=== PATIENT | female | born 1995 | race Caucasian/White ===

== ENCOUNTER 2018-07-30 21:42 | Emergency (ER) | payer BC ==
[2018-07-30] MEDS ORDERED: ONDANSETRON 4 MG/2 ML VIAL IVP STA (22:50)
[2018-07-30] MEDS ORDERED: SODIUM CHLORIDE 0.9% 1,000 ML IV STA (22:50)
[2018-07-30] MEDS ORDERED: KETOROLAC 30 MG/ML 1 ML VIAL IVP STA (22:50)
[2018-07-30 23:49] LABS: Basophils # (A) 0.1 k/uL (0-0.2); Basophils % (A) 0 %; Eosinophils % (A) 0 %; HCT 39.4 % (34.0-46.0); HGB 13.1 gm/dL (11.4-16.0); Lymphocytes # (A) 2.4 k/uL (1.0-4.8); Lymphocytes % (A) 18 %; MCH 29.9 pg (25.0-35.0); MCHC 33.2 g/dL (31.0-37.0); Mean Platelet Volume 6.6; Monocytes # (A) 0.6 k/uL (0-1.0); Monocytes % (A) 4 %; Neutrophils # (A) 9.8 k/uL (1.3-7.7); Neutrophils % (A) 75 %; Platelet Count 335 k/uL (150-450); RBC 4.37 m/uL (3.80-5.40); RDW 12.8 % (11.5-15.5)
[2018-07-30 23:56] LABS: Appearance,Urine Clear (Clear); Bacteria,Urine Rare /hpf; Bilirubin,Urine Negative (Negative); Blood,Urine Moderate (Negative); Color,Urine Light Yellow; Glucose,Urine (UA) Negative (Negative); Ketones,Urine Negative (Negative); Leukocyte Esterase,Urine Negative (Negative); Mucus,Urine Rare /hpf; Nitrite,Urine Negative (Negative); PH, Urine 6.5 (5.0-8.0); Protein,Urine Negative (Negative); RBC,Urine 7 /hpf (0-5); Specific Gravity,Urine 1.006 (1.001-1.035); Squamous Epithelial Cell,Urine 2 /hpf (0-4); Urobilinogen,Urine <2.0 mg/dL (<2.0); WBC,Urine 2 /hpf (0-5)
[2018-07-31 00:01] LABS: ALT 13 U/L (9-52); AST 23 U/L (14-36); Albumin 4.3 g/dL (3.5-5.0); Alkaline Phosphatase 72 U/L (38-126); Amylase 68 U/L (30-110); Anion Gap 10 mmol/L; Blood Urea Nitrogen 11 mg/dL (7-17); Calcium 9.9 mg/dL (8.4-10.2); Carbon Dioxide 27 mmol/L (22-30); Chloride 103 mmol/L (98-107); Glucose 109 mg/dL (74-99); Lipase 43 U/L (23-300); Potassium 3.7 mmol/L (3.5-5.1); Sodium 140 mmol/L (137-145); Total Bilirubin 0.4 mg/dL (0.2-1.3); Total Protein 7.4 g/dL (6.3-8.2)
--- NOTE | 2018-07-31 00:52 | CT ---
EXAM: CT Abdomen and Pelvis Without Intravenous Contrast CLINICAL HISTORY: Pain TECHNIQUE: Axial computed tomography images of the abdomen and pelvis without intravenous contrast. CTDI is 0.085, 0.085, 10.2 mGy and DLP is 536.4 mGy-cm. This CT exam was performed using one or more of the following dose reduction techniques: automated exposure control, adjustment of the mA and/or kV according to patient size, and/or use of iterative reconstruction technique. COMPARISON: No relevant prior studies available. FINDINGS: Lung bases: Dependent atelectasis. ABDOMEN: Liver: Unremarkable. Gallbladder and bile ducts: Unremarkable. Pancreas: Unremarkable. Spleen: Unremarkable. Adrenals: Unremarkable. Kidneys and ureters: 3 mm This the right UVJ which causes minimal hydroureteronephrosis. There are additional nonobstructing calculi within both kidneys. Stomach and bowel: Unremarkable. PELVIS: Appendix: No findings to suggest acute appendicitis. Bladder: Unremarkable. Reproductive: Unremarkable as visualized. ABDOMEN and PELVIS: Intraperitoneal space: Unremarkable. Bones/joints: No acute fracture. No dislocation. Soft tissues: Unremarkable. Vasculature: Unremarkable. No abdominal aortic aneurysm. Lymph nodes: Unremarkable. IMPRESSION: 1. 3 mm This the right UVJ which causes minimal hydroureteronephrosis. 2. There are additional nonobstructing calculi within both kidneys.
[2018-07-31] MEDS ORDERED: ONDANSETRON 4 MG ODT STARTER PACK 2 TAB BTL PO STA (01:03)
[2018-07-31] MEDS ORDERED: ACET/COD 300 MG/30 MG STARTER PACK 6 TAB BTL PO STA (01:03)
--- NOTE | 2018-07-31 01:03 | ED ---
Abdominal Pain HPI - General Source: patient Mode of arrival: ambulatory Limitations: no limitations <Idalmis Arzola - Last Filed: 07/31/18 02:47> <Hansa Antonio - Last Filed: 07/31/18 22:22> - General Chief Complaint: Abdominal Pain Stated Complaint: Side Abd Pain Time Seen by Provider: 07/30/18 22:16 - History of Present Illness Initial Comments: 23-year-old female patient presents to the emergency department today for evaluation of right flank pain and right lower quadrant abdominal pain. Patient states this started yesterday and has been worsening throat the day today. Patient states she has been taking naproxen for the pain and it does seem to help all when it wears off the pain comes back and is quite intense. Patient states it is a general burning aching type pain and that at times becomes stabbing. Patient states that she has been having difficulty with urination today. Denies any dysuria to states it is hard to urinate. She denies any fever or chills with this. Denies any nausea or vomiting. States she has had no appetite. States she was able to keep down food and fluid however. She states there is a possibility she is . She denies any constipation or diarrhea. Patient did have in the past but no other abdominal surgeries. Patient denies any recent rash, shortness breath, chest pain, numbness, tingling, dizziness, weakness, headache, visual changes, or any other complaints. (Idalmis Arzola) - Related Data Home Medications Medication Instructions Recorded Confirmed Naproxen 500 mg PO BID 07/30/18 07/30/18 Norethindrone-E.estradiol-Iron 1 tab PO DAILY 07/30/18 07/30/18 [Junel Fe 1.5 mg-30 Mcg Tablet] Previous Rx's Medication Instructions Recorded Naproxen [Naprosyn] 500 mg PO BID #30 tablet 07/31/18 Ondansetron [Zofran ODT] 4 mg PO Q8HR PRN #10 tab 07/31/18 Tamsulosin HCl [Flomax] 0.4 mg PO DAILY #7 cap 07/31/18 Allergies Allergy/AdvReac Type Severity Reaction Status Date / Time Penicillins Allergy Unknown Verified 07/30/18 21:48 Review of Systems ROS Other: All systems not noted in ROS Statement are negative. <Idalmis Arzola M - Last Filed: 07/31/18 02:47> ROS Other: All systems not noted in ROS Statement are negative. <Marguerite Antonioica P - Last Filed: 07/31/18 22:22> ROS Statement: Those systems with pertinent positive or pertinent negative responses have been documented in the HPI. Past Medical History Additional Past Medical History / Comment(s): villafuerte parkinson white History of Any Multi-Drug Resistant Organisms: None Reported Past Surgical History: Section Past Psychological History: No Psychological Hx Reported Smoking Status: Never smoker Past Alcohol Use History: None Reported Past Drug Use History: None Reported <Idalmis Arzola M - Last Filed: 07/31/18 02:47> General Exam Limitations: no limitations General appearance: alert, in no apparent distress, other (Physical well- developed, well-nourished adult female patient in no acute distress. Vital s igns upon presentation are temperature 97.8F, pulse 116, respirations 18, blood pressure 149/96, pulse ox 100% on room air.) Eye exam: Present: normal appearance, PERRL, EOMI. Absent: scleral icterus, conjunctival injection, periorbital swelling ENT exam: Present: normal exam, normal oropharynx, mucous membranes moist Respiratory exam: Present: normal lung sounds bilaterally. Absent: respiratory distress, wheezes, rales, rhonchi, stridor Cardiovascular Exam: Present: regular rate, normal rhythm, normal heart sounds. Absent: systolic murmur, diastolic murmur, rubs, gallop, clicks GI/Abdominal exam: Present: soft, tenderness (Mild right-sided abdominal tenderness), normal bowel sounds. Absent: distended, guarding, rebound, rigid Back exam: Present: normal inspection, CVA tenderness (R). Absent: CVA tenderness (L) Neurological exam: Present: alert, oriented X3, CN II-XII intact Psychiatric exam: Present: normal affect, normal mood Skin exam: Present: warm, dry, intact, normal color. Absent: rash <Idalmis Arzola M - Last Filed: 07/31/18 02:47> Course Vital Signs 07/30/18 07/30/18 07/31/18 21:46 23:00 00:05 Temperature 97.8 F 97.8 F 98.2 F Pulse Rate 116 H 70 87 Respiratory 18 16 15 Rate Blood Pressure 149/96 132/92 139/87 O2 Sat by Pulse 100 99 98 Oximetry 07/31/18 01:20 Temperature 98.5 F Pulse Rate 98 Respiratory 18 Rate Blood Pressure 149/98 O2 Sat by Pulse 99 Oximetry Medical Decision Making - Lab Data Result diagrams: 07/30/18 23:40 07/30/18 23:40 - Radiology Data Radiology results: report reviewed, image reviewed <Idalmis Arzola - Last Filed: 07/31/18 02:47> - Lab Data Result diagrams: 07/30/18 23:40 07/30/18 23:40 <Hansa Antonio - Last Filed: 07/31/18 22:22> - Medical Decision Making 23-year-old female patient presents to the emergency department today for evalua tion of right-sided flank and abdominal pain. Physical examination did reveal right CVA tenderness. Labs reviewed and showed evidence for blood in the urine but no evidence for infection. Patient is not . Given symptoms and findings of red blood cells in the urine is concerned for kidney stones we did perform CT of the abdomen and pelvis without contrast. This did show a 3 mm stone to the right UVJ. She'll be treated with Flomax, anti-inflammatories, nausea medication. She is instructed to follow-up with urologist for recheck as soon as possible. Return parameters discussed in detail. She verbalizes understanding and agrees with this plan. (Idalmis Arzola) I was available for consultation in the emergency department. The history and physical exam were done by the Midlevel Provider. Medical decision making was done by the Midlevel Provider. I have reviewed the chart, however was not consulted specifically or made aware of this patient by the above midlevel provider and did not personally evaluate, interact with, or disposition this patient on the day of their visit Chart was dictated using [employer] dictation software. Attempts were made to correct any dictation errors however some typographical errors may persist. (Hansa Antonio) - Lab Data Lab Results 07/30/18 07/30/18 07/30/18 Range/Units 23:40 23:40 23:40 WBC 13.0 H (3.8-10.6) k/uL RBC 4.37 (3.80-5.40) m/uL Hgb 13.1 (11.4-16.0) gm/dL Hct 39.4 (34.0-46.0) % MCV 90.0 (80.0-100.0) fL MCH 29.9 (25.0-35.0) pg MCHC 33.2 (31.0-37.0) g/dL RDW 12.8 (11.5-15.5) % Plt Count 335 (150-450) k/uL Neutrophils % 75 % Lymphocytes % 18 % Monocytes % 4 % Eosinophils % 0 % Basophils % 0 % Neutrophils # 9.8 H (1.3-7.7) k/uL Lymphocytes # 2.4 (1.0-4.8) k/uL Monocytes # 0.6 (0-1.0) k/uL Eosinophils # 0.0 (0-0.7) k/uL Basophils # 0.1 (0-0.2) k/uL Sodium 140 (137-145) mmol/L Potassium 3.7 (3.5-5.1) mmol/L Chloride 103 (98-107) mmol/L Carbon Dioxide 27 (22-30) mmol/L Anion Gap 10 mmol/L BUN 11 (7-17) mg/dL Creatinine 0.55 (0.52-1.04) mg/dL Est GFR (CKD-EPI)AfAm >90 (>60 ml/min/1.73 sqM) Est GFR (CKD-EPI)NonAf >90 (>60 ml/min/1.73 sqM) Glucose 109 H (74-99) mg/dL Calcium 9.9 (8.4-10.2) mg/dL Total Bilirubin 0.4 (0.2-1.3) mg/dL AST 23 (14-36) U/L ALT 13 (9-52) U/L Alkaline Phosphatase 72 (38-126) U/L Total Protein 7.4 (6.3-8.2) g/dL Albumin 4.3 (3.5-5.0) g/dL Amylase 68 (30-110) U/L Lipase 43 (23-300) U/L Urine Color Urine Appearance (Clear) Urine pH (5.0-8.0) Ur Specific [place] (1.001-1.035) Urine Protein (Negative) Urine Glucose (UA) (Negative) Urine Ketones (Negative) Urine Blood (Negative) Urine Nitrite (Negative) Urine Bilirubin (Negative) Urine Urobilinogen (<2.0) mg/dL Ur Leukocyte Esterase (Negative) Urine RBC (0-5) /hpf Urine WBC (0-5) /hpf Ur Squamous Epith Cells (0-4) /hpf Urine Bacteria (None) /hpf Urine Mucus (None) /hpf Urine HCG, Qual Not Detected (Not Detectd) 07/30/18 Range/Units 23:40 WBC (3.8-10.6) k/uL RBC (3.80-5.40) m/uL Hgb (11.4-16.0) gm/dL Hct (34.0-46.0) % MCV (80.0-100.0) fL MCH (25.0-35.0) pg MCHC (31.0-37.0) g/dL RDW (11.5-15.5) % Plt Count (150-450) k/uL Neutrophils % % Lymphocytes % % Monocytes % % Eosinophils % % Basophils % % Neutrophils # (1.3-7.7) k/uL Lymphocytes # (1.0-4.8) k/uL Monocytes # (0-1.0) k/uL Eosinophils # (0-0.7) k/uL Basophils # (0-0.2) k/uL Sodium (137-145) mmol/L Potassium (3.5-5.1) mmol/L Chloride (98-107) mmol/L Carbon Dioxide (22-30) mmol/L Anion Gap mmol/L BUN (7-17) mg/dL Creatinine (0.52-1.04) mg/dL Est GFR (CKD-EPI)AfAm (>60 ml/min/1.73 sqM) Est GFR (CKD-EPI)NonAf (>60 ml/min/1.73 sqM) Glucose (74-99) mg/dL Calcium (8.4-10.2) mg/dL Total Bilirubin (0.2-1.3) mg/dL AST (14-36) U/L ALT (9-52) U/L Alkaline Phosphatase (38-126) U/L Total Protein (6.3-8.2) g/dL Albumin (3.5-5.0) g/dL Amylase (30-110) U/L Lipase (23-300) U/L Urine Color Light Yellow Urine Appearance Clear (Clear) Urine pH 6.5 (5.0-8.0) Ur Specific [place] 1.006 (1.001-1.035) Urine Protein Negative (Negative) Urine Glucose (UA) Negative (Negative) Urine Ketones Negative (Negative) Urine Blood Moderate H (Negative) Urine Nitrite Negative (Negative) Urine Bilirubin Negative (Negative) Urine Urobilinogen <2.0 (<2.0) mg/dL Ur Leukocyte Esterase Negative (Negative) Urine RBC 7 H (0-5) /hpf Urine WBC 2 (0-5) /hpf Ur Squamous Epith Cells 2 (0-4) /hpf Urine Bacteria Rare H (None) /hpf Urine Mucus Rare H (None) /hpf Urine HCG, Qual (Not Detectd) - Radiology Data CT abdomen and pelvis without contrast was obtained. Report was reviewed in its entirety. Impression by Dr. Bonilla shows 3 mm stone to the right UVJ which causes minimal hydroureteronephrosis. There is additional nonobstructing cocci within both kidneys. (Idalmis Arzola) Disposition Is patient prescribed a controlled substance at d/c from ED?: No Time of Disposition: 01:03 <Idalmis Arzola - Last Filed: 07/31/18 02:47> <Hansa Antonio - Last Filed: 07/31/18 22:22> Clinical Impression: Kidney stone on right side Disposition: HOME SELF-CARE Condition: Good Instructions (If sedation given, give patient instructions): Kidney Stones (ED), How to Strain Your Urine (ED) Additional Instructions: Increase fluids. Take medications as directed. Follow-up with your primary care physician for recheck in 1-2 days. Follow-up with urologist for recheck as soon as possible. Return to the emergency department immediately for any new, worsening, or concerning symptoms. Prescriptions: Tamsulosin HCl [Flomax] 0.4 mg PO DAILY #7 cap Naproxen [Naprosyn] 500 mg PO BID #30 tablet Ondansetron [Zofran ODT] 4 mg PO Q8HR PRN #10 tab PRN Reason: Nausea Referrals: Yovanny Oswald MD [STAFF PHYSICIAN] - 1-2 days
[2018-07-31] MEDS ORDERED: TAMSULOSIN 0.4 MG CAP.ER.24H PO STA (01:07)
[2018-07-31 01:24] VITALS: BP 149/98; PULSE 98; RESP 18; TEMP 98.5
== END 2018-07-31 01:20 | disposition home or self-care (01) ==
LOC: EC 21:42
DX: N13.2 Hydronephrosis with renal and ureteral calculous obstruction (principal); Z79.1 Long term (current) use of non-steroidal anti-inflammatories (NSAID); Z79.3 Long term (current) use of hormonal contraceptives; Z88.0 Allergy status to penicillin
CPT/HCPCS: 36415; 80053; 82150; 83690; 85025; 81001; 81025; 99284; 96374; 96375; 96361 ×2; J2405; J1885; 74176

== ENCOUNTER 2022-11-08 19:01 | Emergency (ER) | payer BC ==
[2022-11-08 19:05] VITALS: BP 132/83; PULSE 90; RESP 18; TEMP 98.6
--- NOTE | 2022-11-08 19:52 | XR ---
EXAMINATION TYPE: XR soft tissue neck DATE OF EXAM: 11/08/2022 COMPARISON: NONE HISTORY: PATIENT FEELS FOOD WAS LODGED IN AIRWAY. TECHNIQUE: 2 views of the soft tissues of the neck are submitted. FINDINGS: The airway is patent. Normal appearing epiglottis. Retropharyngeal soft tissues are withi n normal limits. No evidence for radiopaque foreign body. IMPRESSION: Negative study
--- NOTE | 2022-11-08 21:16 | ED ---
ENT HPI - General Chief complaint: ENT Stated complaint: Swallowed foreign body; 9 weeks preg Source: patient Mode of arrival: ambulatory - History of Present Illness Initial comments: A 27-year-old female presenting to the ED with a chief complaint of foreign body sensation. Patient states she was eating dinner and a grill [place] was in her food. States that she feels it hit the back of her throat. Is unsure if she swallowed it however feels like it is still in the back of her throat as every time she swallows she feels pain. No dyspnea. No difficulty swallowing. No other complaints. - Related Data Home Medications Medication Instructions Recorded Confirmed Naproxen 500 mg PO BID 07/30/18 07/30/18 norethindrone-e.estradioL-iron 1 tab PO DAILY 07/30/18 07/30/18 [Junel Fe 1.5 mg-30 Mcg Tablet] Previous Rx's Medication Instructions Recorded Naproxen [Naprosyn] 500 mg PO BID #30 tablet 07/31/18 Ondansetron [Zofran ODT] 4 mg PO Q8HR PRN #10 tab 07/31/18 Tamsulosin HCl [Flomax] 0.4 mg PO DAILY #7 cap 07/31/18 Allergies Allergy/AdvReac Type Severity Reaction Status Date / Time Penicillins Allergy Unknown Verified 11/08/22 19:05 Review of Systems ROS Statement: Those systems with pertinent positive or pertinent negative responses have been documented in the HPI. ROS Other: All systems not noted in ROS Statement are negative. Past Medical History Additional Past Medical History / Comment(s): christo koehler History of Any Multi-Drug Resistant Organisms: None Reported Past Surgical History: Section Past Psychological History: No Psychological Hx Reported Past Alcohol Use History: None Reported Past Drug Use History: None Reported General Exam Limitations: no limitations General appearance: alert, in no apparent distress Head exam: Present: atraumatic ENT exam: Present: other (Punctate lesion on the patient's right tonsil) Neck exam: Present: normal inspection Respiratory exam: Present: normal lung sounds bilaterally Cardiovascular Exam: Present: regular rate, normal rhythm GI/Abdominal exam: Present: soft Extremities exam: Present: normal inspection Back exam: Present: normal inspection Neurological exam: Present: alert, oriented X3 Skin exam: Present: warm, dry Course Vital Signs 11/08/22 19:02 Temperature 98.6 F Pulse Rate 90 Respiratory 18 Rate Blood Pressure 132/83 O2 Sat by Pulse 100 Oximetry Medical Decision Making - Medical Decision Making Was pt. sent in by a medical professional or institution (VAISHNAVI Lozano, ERECTING ENGINEER, urgent care, hospital, or [place] health care facility...) When possible be specific @ -No Did you speak to anyone other than the patient for history (EMS, parent, family, police, friend...)? What history was obtained from this source @ -No Did you review nursing and triage notes (agree or disagree)? Why? @ -I reviewed and agree with nursing and triage notes Were old charts reviewed (outside hosp., previous admission, EMS record, old EK G, old radiological studies, urgent care reports/EKG's, [place] health [facility] facility records)? Report findings @ -No old charts were reviewed Differential Diagnosis (chest pain, altered mental status, abdominal pain women, abdominal pain men, vaginal bleeding, weakness, fever, dyspnea, syncope, headache, dizziness, GI bleed, back pain, seizure, CVA, palpatations, mental health, musculoskeletal)? @ -not applicable EKG interpreted by me (3pts min.). @ -None X-rays interpreted by me (1pt min.). @ -X-ray soft tissue shows no evidence of foreign object. CT interpreted by me (1pt min.). @ -None done U/S interpreted by me (1pt. min.). @ -None done What testing was considered but not performed or refused? (CT, X-rays, U/S, labs)? Why? @ -None What meds were considered but not given or refused? Why? @ -None Did you discuss the management of the patient with other professionals (professionals i.e. VAISHNAVI Lozano, ERECTING ENGINEER, lab, RT, psych nurse, social work instructor, urban designer, teacher, landcare officer, case repairer)? Give summary @ -No Was smoking cessation discussed for >3mins.? @ -No Was critical care preformed (if so, how long)? @ -No Were there social determinants of health that impacted care today? How? (H omelessness, low income, unemployed, alcoholism, drug addiction, transportation, low edu. Level, literacy, decrease access to med. care, fdc, rehab)? @ -No Was there de-escalation of care discussed even if they declined (Discuss DNR or withdrawal of care, Hospice)? DNR status @ -No What co-morbidities impacted this encounter? (DM, HTN, Smoking, COPD, CAD, Cancer, CVA, ARF, Chemo, Hep., AIDS, mental health diagnosis, sleep apnea, morbid obesity)? @ -None Was patient admitted / discharged? Hospital course, mention meds given and route, prescriptions, significant lab abnormalities, going to OR and other pertinent info. @ -Discharge. Exam shows no foreign body in throat however did show a punctate lesion consistent with swallowing a foreign object/trauma caused by the foreign object. At this time, patient is not having any dyspnea or difficulty swallowing her own secretions. Patient discharged home. Discussed return precautions with patient verbalizes agreement. Undiagnosed new problem with uncertain prognosis? @ -No Drug Therapy requiring intensive monitoring for toxicity (Heparin, Nitro, Insulin, Cardizem)? @ -No Were any procedures done? @ -No Diagnosis/symptom? @ -foreign object sensation in throat Acute, or Chronic, or Acute on Chronic? @ -Acute Uncomplicated (without systemic symptoms) or Complicated (systemic symptoms)? @ -Uncomplicated Side effects of treatment? @ -No Exacerbation, Progression, or Severe Exacerbation? @ -No Poses a threat to life or bodily function? How? (Chest pain, [place], NH, pneumonia, PE, COPD, DKA, ARF, appy, cholecystitis, CVA, Diverticulitis, Homicidal, Suicidal, threat to staff... and all critical care pts) @ -No Disposition Clinical Impression: Foreign body sensation in throat Disposition: HOME SELF-CARE Condition: Good Additional Instructions: Please return to the Emergency Department if symptoms worsen or any other concerns. Is patient prescribed a controlled substance at d/c from ED?: No Referrals: Arabella Meyer DO [Primary Care Provider] - 1-2 days Time of Disposition: 21:19
== END 2022-11-08 21:28 | disposition home or self-care (01) ==
LOC: EC 19:01
DX: O26.891 Other specified pregnancy related conditions, first trimester (principal); R09.89 Other specified symptoms and signs involving the circulatory and respiratory systems; Z3A.09 9 weeks gestation of pregnancy; Z88.0 Allergy status to penicillin
CPT/HCPCS: 70360; 99283

== ENCOUNTER 2023-02-04 01:54 | Observation (INO) | payer BC ==
[2023-02-04] MEDS ORDERED: ACETAMINOPHEN TAB 325 MG TAB PO STA (02:21)
[2023-02-04] MEDS ORDERED: SODIUM CHLORIDE 0.9% 500 ML 500 ML IV STA (02:24)
--- NOTE | 2023-02-04 02:32 | ED ---
General Adult HPI - General Chief complaint: Arrhythmia/Palpitations Stated complaint: Heart palpitations Time Seen by Provider: 02/04/23 02:08 Source: patient, EMS Mode of arrival: EMS - History of Present Illness Initial comments: this patient is a 27-year-old woman, she states she is approximately 21 weeks by previous ultrasound. The patient states that tonight she had sudden onset of flank pain radiating to the lower abdomen. She states that the pain became so intense that she went into SVT. She states she has had previous episodes of tachycardia. EMS was called and she states that they did administer a dose of adenosine which she states helped the SVT to resolve. Heart rate was reportedly about 150. -: hour(s) - Related Data Home Medications Medication Instructions Recorded Confirmed Naproxen 500 mg PO BID 07/30/18 07/30/18 norethindrone-e.estradioL-iron 1 tab PO DAILY 07/30/18 07/30/18 [Junel Fe 1.5 mg-30 Mcg Tablet] Previous Rx's Medication Instructions Recorded Naproxen [Naprosyn] 500 mg PO BID #30 tablet 07/31/18 Ondansetron [Zofran ODT] 4 mg PO Q8HR PRN #10 tab 07/31/18 Tamsulosin HCl [Flomax] 0.4 mg PO DAILY #7 cap 07/31/18 Allergies Allergy/AdvReac Type Severity Reaction Status Date / Time Penicillins Allergy Unknown Verified 11/08/22 19:05 Review of Systems ROS Statement: Those systems with pertinent positive or pertinent negative responses have been documented in the HPI. ROS Other: All systems not noted in ROS Statement are negative. Past Medical History Additional Past Medical History / Comment(s): villafuerte parkinson zakia History of Any Multi-Drug Resistant Organisms: None Reported Past Surgical History: Section Past Psychological History: No Psychological Hx Reported Smoking Status: Never smoker Past Alcohol Use History: None Reported Past Drug Use History: None Reported Course Vital Signs 02/04/23 02/04/23 01:57 04:00 Temperature 98.0 F Pulse Rate 104 H 93 Respiratory 20 19 Rate Blood Pressure 120/94 117/73 O2 Sat by Pulse 93 L 96 Oximetry EKG Findings - EKG Results: EKG: interpreted by ERMKayden, sinus rhythm, normal axis, normal QRS, normal ST/T (rate 97 bpm), no acute changes Medical Decision Making - Lab Data Result diagrams: 02/04/23 02:48 02/04/23 02:48 Lab Results 02/04/23 02/04/23 02/04/23 Range/Units 02:48 02:48 02:48 WBC 18.5 H (3.8-10.6) k/uL RBC 4.14 (3.80-5.40) m/uL Hgb 12.6 (11.4-16.0) gm/dL Hct 37.0 (34.0-46.0) % MCV 89.5 (80.0-100.0) fL MCH 30.4 (25.0-35.0) pg MCHC 34.0 (31.0-37.0) g/dL RDW 13.2 (11.5-15.5) % Plt Count 370 (150-450) k/uL MPV 7.2 Neutrophils % 84 % Lymphocytes % 11 % Monocytes % 4 % Eosinophils % 0 % Basophils % 0 % Neutrophils # 15.5 H (1.3-7.7) k/uL Lymphocytes # 2.0 (1.0-4.8) k/uL Monocytes # 0.8 (0-1.0) k/uL Eosinophils # 0.1 (0-0.7) k/uL Basophils # 0.0 (0-0.2) k/uL Sodium 132 L (137-145) mmol/L Potassium 3.6 (3.5-5.1) mmol/L Chloride 102 (98-107) mmol/L Carbon Dioxide 21 L (22-30) mmol/L Anion Gap 9 mmol/L BUN 7 (7-17) mg/dL Creatinine 0.44 L (0.52-1.04) mg/dL Est GFR (CKD-EPI)AfAm >90 (>60 ml/min/1.73 sqM) Est GFR (CKD-EPI)NonAf >90 (>60 ml/min/1.73 sqM) Glucose 111 H (74-99) mg/dL Calcium 9.1 (8.4-10.2) mg/dL Magnesium 1.5 L (1.6-2.3) mg/dL Total Bilirubin 0.4 (0.2-1.3) mg/dL AST 24 (14-36) U/L ALT 18 (4-34) U/L Alkaline Phosphatase 76 (38-126) U/L Troponin I (0.000-0.034) ng/mL Total Protein 6.8 (6.3-8.2) g/dL Albumin 3.7 (3.5-5.0) g/dL Urine Color Light Yellow Urine Appearance Clear (Clear) Urine pH 6.5 (5.0-8.0) Ur Specific Jewell 1.012 (1.001-1.035) Urine Protein Negative (Negative) Urine Glucose (UA) Negative (Negative) Urine Ketones 2+ H (Negative) Urine Blood Moderate H (Negative) Urine Nitrite Negative (Negative) Urine Bilirubin Negative (Negative) Urine Urobilinogen <2.0 (<2.0) mg/dL Ur Leukocyte Esterase Negative (Negative) Urine RBC 108 H (0-5) /hpf Urine WBC 5 (0-5) /hpf Ur Squamous Epith Cells 2 (0-4) /hpf Urine Bacteria Occasional H (None) /hpf Urine Mucus Rare H (None) /hpf 02/04/23 Range/Units 02:48 WBC (3.8-10.6) k/uL RBC (3.80-5.40) m/uL Hgb (11.4-16.0) gm/dL Hct (34.0-46.0) % MCV (80.0-100.0) fL MCH (25.0-35.0) pg MCHC (31.0-37.0) g/dL RDW (11.5-15.5) % Plt Count (150-450) k/uL MPV Neutrophils % % Lymphocytes % % Monocytes % % Eosinophils % % Basophils % % Neutrophils # (1.3-7.7) k/uL Lymphocytes # (1.0-4.8) k/uL Monocytes # (0-1.0) k/uL Eosinophils # (0-0.7) k/uL Basophils # (0-0.2) k/uL Sodium (137-145) mmol/L Potassium (3.5-5.1) mmol/L Chloride (98-107) mmol/L Carbon Dioxide (22-30) mmol/L Anion Gap mmol/L BUN (7-17) mg/dL Creatinine (0.52-1.04) mg/dL Est GFR (CKD-EPI)AfAm (>60 ml/min/1.73 sqM) Est GFR (CKD-EPI)NonAf (>60 ml/min/1.73 sqM) Glucose (74-99) mg/dL Calcium (8.4-10.2) mg/dL Magnesium (1.6-2.3) mg/dL Total Bilirubin (0.2-1.3) mg/dL AST (14-36) U/L ALT (4-34) U/L Alkaline Phosphatase (38-126) U/L Troponin I 0.270 H* (0.000-0.034) ng/mL Total Protein (6.3-8.2) g/dL Albumin (3.5-5.0) g/dL Urine Color Urine Appearance (Clear) Urine pH (5.0-8.0) Ur Specific Jewell (1.001-1.035) Urine Protein (Negative) Urine Glucose (UA) (Negative) Urine Ketones (Negative) Urine Blood (Negative) Urine Nitrite (Negative) Urine Bilirubin (Negative) Urine Urobilinogen (<2.0) mg/dL Ur Leukocyte Esterase (Negative) Urine RBC (0-5) /hpf Urine WBC (0-5) /hpf Ur Squamous Epith Cells (0-4) /hpf Urine Bacteria (None) /hpf Urine Mucus (None) /hpf Disposition Clinical Impression: Flank pain, H/O paroxysmal supraventricular tachycardia Disposition: ADMITTED IP TO THIS HOSP Condition: Good Is patient prescribed a controlled substance at d/c from ED?: No Referrals: Arabella Meyer DO [Primary Care Provider] - 1-2 days
[2023-02-04 03:26] LABS: Appearance,Urine Clear (Clear); Bacteria,Urine Occasional /hpf; Basophils % (A) 0 %; Bilirubin,Urine Negative (Negative); Blood,Urine Moderate (Negative); Color,Urine Light Yellow; Eosinophils # (A) 0.1 k/uL (0-0.7); Eosinophils % (A) 0 %; Glucose,Urine (UA) Negative (Negative); HGB 12.6 gm/dL (11.4-16.0); Ketones,Urine 2+ (Negative); Leukocyte Esterase,Urine Negative (Negative); Lymphocytes % (A) 11 %; MCH 30.4 pg (25.0-35.0); MCV 89.5 fL (80.0-100.0); Mean Platelet Volume 7.2; Monocytes # (A) 0.8 k/uL (0-1.0); Monocytes % (A) 4 %; Mucus,Urine Rare /hpf; Neutrophils # (A) 15.5 k/uL (1.3-7.7); Neutrophils % (A) 84 %; Nitrite,Urine Negative (Negative); PH, Urine 6.5 (5.0-8.0); Platelet Count 370 k/uL (150-450); Protein,Urine Negative (Negative); RBC 4.14 m/uL (3.80-5.40); RBC,Urine 108 /hpf (0-5); RDW 13.2 % (11.5-15.5); Specific Gravity,Urine 1.012 (1.001-1.035); Squamous Epithelial Cell,Urine 2 /hpf (0-4); Urobilinogen,Urine <2.0 mg/dL (<2.0); WBC 18.5 k/uL (3.8-10.6); WBC,Urine 5 /hpf (0-5)
[2023-02-04 03:29] LABS: ALT 18 U/L (4-34); AST 24 U/L (14-36); African American GFR (CKD) >90 (>60 ml/min/1.73 sqM); Albumin 3.7 g/dL (3.5-5.0); Alkaline Phosphatase 76 U/L (38-126); Anion Gap 9 mmol/L; Blood Urea Nitrogen 7 mg/dL (7-17); Calcium 9.1 mg/dL (8.4-10.2); Carbon Dioxide 21 mmol/L (22-30); Chloride 102 mmol/L (98-107); Glucose 111 mg/dL (74-99); Magnesium 1.5 mg/dL (1.6-2.3); Non-African American GFR(CKD) >90 (>60 ml/min/1.73 sqM); Potassium 3.6 mmol/L (3.5-5.1); Sodium 132 mmol/L (137-145); Total Bilirubin 0.4 mg/dL (0.2-1.3); Total Protein 6.8 g/dL (6.3-8.2)
[2023-02-04] MEDS ORDERED: ONDANSETRON 4 MG/2 ML VIAL IVP PRN (04:25)
[2023-02-04] MEDS ORDERED: MORPHINE SULFATE 4 MG/ML SYRINGE IV PRN (04:25)
[2023-02-04] MEDS ORDERED: NALOXONE 0.4 MG/ML 1 ML VIAL IV PRN (04:25)
[2023-02-04] MEDS ORDERED: ACETAMINOPHEN TAB 325 MG TAB PO PRN (04:25)
[2023-02-04] MEDS: SODIUM CHLORIDE 0.9% 1,000 ML IV SCH ×2 (04:48→12:14)
--- NOTE | 2023-02-04 08:03 | US ---
EXAMINATION TYPE: US kidneys/renal and bladder DATE OF EXAM: 02/04/2023 COMPARISON: NONE CLINICAL INDICATION: Female, 27 years old with history of suspected kidney stone; 22 weeks w ith pelvic pain, gross hematuria and h/o renal stones, no flank pain today, tachycardia this morning, admitting to family EXAM MEASUREMENTS: Right Kidney: 11.1 x 5.8 x 6.0 cm Left Kidney: 11.2 x 6.0 x 4.2 cm Right Kidney: No hydronephrosis or masses seen Left Kidney: tiny echogenic foci seen within inferior pole measuring 0.6cm and 0.7cm Bladder: not fully distended, what was seen appears wnl There is no evidence for hydronephrosis at this point in time. No masses are identified. The urinar y bladder is anechoic. Bilateral ureteral jets are seen. IMPRESSION: Nonobstructing left-sided nephrolithiasis.
[2023-02-04] MEDS ORDERED: MORPHINE SULFATE 2 MG/ML SYRINGE IV PRN (10:06)
--- NOTE | 2023-02-04 11:27 | US ---
EXAMINATION TYPE: US venous doppler duplex LE BI DATE OF EXAM: 02/04/2023 11:15 AM COMPARISON: NONE CLINICAL INDICATION: Female, 27 years old with history of rule out DVT; high level of troponin, no le g symptoms, patient is 22 weeks , no h/o dvt SIDE PERFORMED: Bilateral TECHNIQUE: The lower extremity deep venous system is examined utilizing real time linear array sonog de with graded compression, doppler sonography and color-flow sonography. VESSELS IMAGED: Common Femoral Vein Deep Femoral Vein Greater Saphenous Vein * Femoral Vein Popliteal Vein Small Saphenous Vein * Proximal Calf Veins (* superficial vessels) Right Leg: Negative for DVT Left Leg: Negative for DVT IMPRESSION: Grayscale, color doppler, spectral doppler imaging performed of the deep veins of the lo wer extremities. There is normal flow, compressibility, vascular waveforms.
--- NOTE | 2023-02-04 11:53 | P.OBCN ---
History of Present Illness Consult date: 02/04/23 Chief complaint: 21 weeks , SVT, nephrolithiasis History of present illness: The patient is a 27-year-old 4 para 0-12 who presented to the emergency room after finding herself in supraventricular tachycardia likely secondary to p ain from an ongoing episode of nephrolithiasis. She has a history of passing kidney stones in the past and recognized discomfort but feels that that stressed rupture into SVT. She was treated while en route to the hospital in the ambulance with adenosine which converted her to a normal sinus rhythm. In the emergency room, they maribel troponins which were found to be somewhat elevated and opted to hold her for further workup. Patient reports that she has just passed her kidney stone and saw it in the toilet and has complete relief of her pain. She was to be admitted to internal medicine for further workup with cardiology on consult. Cardiology will be seeing the patient shortly. She reports no concerns to this point and reports good movement. Obstetrical history: 4 para 0-1-235 week sections, one for preeclampsia and the second for -induced hypertension. She additionally had an ectopic . Current statistics are listed in history present illness. Gynecologic history: Unremarkable and noncontributory. Review of Systems Review of systems is confined to history of present illness. Past Medical History Additional Past Medical History / Comment(s): christo koehler History of Any Multi-Drug Resistant Organisms: None Reported Past Surgical History: Section Past Psychological History: No Psychological Hx Reported Smoking Status: Never smoker Past Alcohol Use History: None Reported Past Drug Use History: None Reported Medications and Allergies Home Medications Medication Instructions Recorded Confirmed Type Aspirin EC [Ecotrin Low Dose] 81 mg PO HS 02/04/23 02/04/23 History Czc-Mlrd-Xworw Acid 1 cap PO HS 02/04/23 02/04/23 History [-U Capsule (formulary)] Allergies Allergy/AdvReac Type Severity Reaction Status Date / Time Penicillins Allergy rash/mouth Verified 02/04/23 10:52 sores Exam Vital Signs Temp Pulse Resp BP Pulse Ox 02/04/23 10:43 82 20 119/86 95 02/04/23 08:14 98.1 F 84 18 119/86 96 02/04/23 06:09 98.0 F 86 19 121/79 94 L 02/04/23 04:47 93 19 115/83 94 L 02/04/23 04:00 93 19 117/73 96 02/04/23 01:57 98.0 F 104 H 20 120/94 93 L Intake and Output 02/03/23 02/04/23 02/04/23 22:59 06:59 14:59 Other: Weight 76.657 kg In general, this is a well-developed, well-nourished white female in no acute distress. Her chest exam is deferred to the medicine team. Her abdomen is gravid with a fundal height consistent with 21 weeks of gestation. Her extremities without any cyanosis, clubbing, or edema and are nontender to palpation bilaterally. Cervical examination is deferred and not indicated. Results Result Diagrams: 02/04/23 02:48 02/04/23 02:48 Abnormal Lab Results - Last 24 Hours (Table) 02/04/23 02/04/23 02/04/23 Range/Units 02:48 02:48 02:48 WBC 18.5 H (3.8-10.6) k/uL Neutrophils # 15.5 H (1.3-7.7) k/uL Sodium 132 L (137-145) mmol/L Carbon Dioxide 21 L (22-30) mmol/L Creatinine 0.44 L (0.52-1.04) mg/dL Glucose 111 H (74-99) mg/dL Magnesium 1.5 L (1.6-2.3) mg/dL Troponin I (0.000-0.034) ng/mL Urine Ketones 2+ H (Negative) Urine Blood Moderate H (Negative) Urine RBC 108 H (0-5) /hpf Urine Bacteria Occasional H (None) /hpf Urine Mucus Rare H (None) /hpf 02/04/23 02/04/23 Range/Units 02:48 06:07 WBC (3.8-10.6) k/uL Neutrophils # (1.3-7.7) k/uL Sodium (137-145) mmol/L Carbon Dioxide (22-30) mmol/L Creatinine (0.52-1.04) mg/dL Glucose (74-99) mg/dL Magnesium (1.6-2.3) mg/dL Troponin I 0.270 H* 0.601 H* (0.000-0.034) ng/mL Urine Ketones (Negative) Urine Blood (Negative) Urine RBC (0-5) /hpf Urine Bacteria (None) /hpf Urine Mucus (None) /hpf Assessment and Plan (1) 21 weeks gestation of Current Visit: Yes Status: Acute Code(s): Z3A.21 - 21 WEEKS GESTATION OF SNOMED Code(s): 20531159 (2) Flank pain Current Visit: Yes Status: Acute Code(s): R10.9 - UNSPECIFIED ABDOMINAL PAIN SNOMED Code(s): 249672198 (3) H/O paroxysmal supraventricular tachycardia Current Visit: Yes Status: Acute Code(s): Z86.79 - PERSONAL HISTORY OF OTHER DISEASES OF THE CIRCULATORY SYSTEM SNOMED Code(s): 826835834853518 Plan: As noted in history of present illness, the patient has passed her kidney stone and is in normal sinus rhythm at this time. Her troponins are elevated and I have discussed the case with Dr. Mancilla who feels it is likely that this is secondary to the episode of tachycardia. He will review her echocardiogram but feels that she likely can be discharged safely to home to follow up for further obstetrical care in the next week as scheduled. Should she remain in the hospital for any length of time, there is nothing needed from an obstetrical standpoint other than to document heart tones with a Doppler once daily which has been ordered. I would anticipate discharge home later this afternoon.
--- NOTE | 2023-02-04 12:05 | P.CRDCN ---
History of Present Illness Consult date: 02/04/23 Chief complaint: Flank pain History of present illness: The patient is a 27-year-old female patient was 21 weeks presented to the emergency department complaining of flank discomfort. No pain in the chest and no shortness of breath and no feeling of heart racing or fluttering and no dizziness or lightheadedness and no presyncope or syncope. During the episode of pain she did have an episode of SVT and she converted subsequently into normal sinus mechanism. For some reason such troponin was checked and came in to be slightly abnormal but she was tachycardic. As a mentioned earlier she is asymptomatic from the cardiovascular standpoint of the beach she was diagnosed in the past with SVT and she was diagnosed in the past with WPW according to her EKG did not show any evidence of preexcitation. The EKG showed sinus mechanism. She was seen in the past by a sample selector but currently she doesn't follow up with any sample selector. The rest of the blood work came in to be unremarkable. The patient underwent an echocardiogram earlier today with follow-up on that. The examination is remarkable for regular rhythm with a systolic murmur/flow murmur at the right and left upper sternal border with a clear breathing sounds bilaterally and no edema in the lower extremity speed the patient passed a kidney stone and her pain has resolved completely Assessment Kidney stone Brief episode of SVT. The documentation of the SVT is unavailable because it was very brief History of SVT in the past History of WPW. The EKG did not show any evidence of preexcitation Plan Restart the patient back on aspirin and she is on aspirin as an outpatient Follow-upon the echocardiogram Follow-up with the patient Past Medical History Additional Past Medical History / Comment(s): villafuerte parkinson white History of Any Multi-Drug Resistant Organisms: None Reported Past Surgical History: Section Past Psychological History: No Psychological Hx Reported Smoking Status: Never smoker Past Alcohol Use History: None Reported Past Drug Use History: None Reported Medications and Allergies Home Medications Medication Instructions Recorded Confirmed Type Aspirin EC [Ecotrin Low Dose] 81 mg PO HS 02/04/23 02/04/23 History Yec-Cvii-Fllji Acid 1 cap PO HS 02/04/23 02/04/23 History [-U Capsule (formulary)] Allergies Allergy/AdvReac Type Severity Reaction Status Date / Time Penicillins Allergy rash/mouth Verified 02/04/23 10:52 sores Physical Exam Vitals: Vital Signs Temp Pulse Resp BP Pulse Ox 02/04/23 10:43 82 20 119/86 95 02/04/23 08:14 98.1 F 84 18 119/86 96 02/04/23 06:09 98.0 F 86 19 121/79 94 L 02/04/23 04:47 93 19 115/83 94 L 02/04/23 04:00 93 19 117/73 96 02/04/23 01:57 98.0 F 104 H 20 120/94 93 L Intake and Output 02/03/23 02/04/23 02/04/23 22:59 06:59 14:59 Other: Weight 76.657 kg Results 02/04/23 02:48 02/04/23 02:48 Cardiac Enzymes 02/04/23 02/04/23 02/04/23 Range/Units 02:48 02:48 06:07 AST 24 (14-36) U/L Troponin I 0.270 H* 0.601 H* (0.000-0.034) ng/mL CBC 02/04/23 Range/Units 02:48 WBC 18.5 H (3.8-10.6) k/uL RBC 4.14 (3.80-5.40) m/uL Hgb 12.6 (11.4-16.0) gm/dL Hct 37.0 (34.0-46.0) % Plt Count 370 (150-450) k/uL Comprehensive Metabolic Panel 02/04/23 Range/Units 02:48 Sodium 132 L (137-145) mmol/L Potassium 3.6 (3.5-5.1) mmol/L Chloride 102 (98-107) mmol/L Carbon Dioxide 21 L (22-30) mmol/L BUN 7 (7-17) mg/dL Creatinine 0.44 L (0.52-1.04) mg/dL Glucose 111 H (74-99) mg/dL Calcium 9.1 (8.4-10.2) mg/dL AST 24 (14-36) U/L ALT 18 (4-34) U/L Alkaline Phosphatase 76 (38-126) U/L Total Protein 6.8 (6.3-8.2) g/dL Albumin 3.7 (3.5-5.0) g/dL Current Medications Generic Name Dose Route Start Last Admin Trade Name Freq PRN Reason Stop Dose Admin Acetaminophen 650 mg 02/04/23 04:25 02/04/23 08:54 Acetaminophen Tab 325 Mg Tab PO 650 mg Q6HR PRN Administration Mild Pain or Fever > 100.5 Sodium Chloride 1,000 mls @ 130 mls/hr 02/04/23 04:30 02/04/23 04:48 Saline 0.9% IV 130 mls/hr .[id number] YAN Administration Ceftriaxone Sodium 1 gm/ 50 mls @ 100 mls/hr 02/04/23 11:30 Sodium Chloride IVPB Q24HR YAN Protocol Naloxone HCl 0.2 mg 02/04/23 04:25 Naloxone 0.4 Mg/Ml 1 Ml Vial IV Q2M PRN Opioid Reversal Ondansetron HCl 4 mg 02/04/23 04:25 Ondansetron 4 Mg/2 Ml Vial IVP Q8HR PRN Nausea And Vomiting Intake and Output 02/03/23 02/04/23 02/04/23 22:59 06:59 14:59 Other: Weight 76.657 kg 02/04/23 02:48 02/04/23 02:48
--- NOTE | 2023-02-04 12:07 | P.HPIM ---
History of Present Illness H&P Date: 02/04/23 Chief Complaint: Abdominal pain * 27-year-old patient with past medical history significant for supraventricular tachycardia, recent COVID-19 infection, who is 4, presents and 21 weeks gestation per FITNESS SERVICES MANAGER. Patient presents with complains of abdominal pain, she does have history of nephrolithiasis and patient felt he passed a kidney stone. This triggered palpitations and noted to have significant tachycardia. En route to the hospital in the ambulance patient was given adenosine which converted to's normal sinus rhythm. At the time of presentation in ER patient had workup initiated which included troponin which was significantly elevated. Initially patient was to be admitted under FITNESS SERVICES MANAGER however secondary to elevated troponin FITNESS SERVICES MANAGER cleared her to be admitted under medicine service with cardiology consultation. Patient denies any concerns with her , reports good movement, denies any spotting * Workup in ER included CBC which were WBC count of 18.5 hemoglobin of 12.6 platelet count of 370 * Serum chemistry showed sodium 132 potassium 3.6 carbon dioxide 21 creatinine 0.44 magnesium of 1.5 * Initial troponin obtained 0.270, followed by 0.601 * Urinalysis obtained showed negative glucose, moderate blood negative nitrite, negative leukocyte esterase and occasional bacteriuria * While in ER patient was given 1 dose of Rocephin and to be admitted to internal medicine service with urology, infectious disease and cardiology consultation REVIEW OF SYSTEMS: Suprapubic discomfort, flank pain on left side on admission , palpitations CONSTITUTIONAL: No fever, no malaise, no fatigue. HEENT: No recent visual problems or hearing problems. Denied any sore throat. CARDIOVASCULAR: No chest pain, orthopnea, PND, , no syncope. PULMONARY: No shortness of breath, no cough, no hemoptysis. GASTROINTESTINAL: No diarrhea, no nausea, no vomiting, NEUROLOGICAL: No headaches, no weakness, no numbness. HEMATOLOGICAL: Denies any bleeding or petechiae. GENITOURINARY: Dysuria, suprapubic discomfort MUSCULOSKELETAL/RHEUMATOLOGICAL: Denies any joint pain, swelling, or any muscle pain. ENDOCRINE: Denies any polyuria or polydipsia. The rest of the 14-point review of systems is negative. PHYSICAL EXAMINATION: GENERAL: The patient is alert and oriented x3, not in any acute distress. Well developed, well nourished. HEENT: Pupils are round and equally reacting to light. EOMI. No scleral icterus. CARDIOVASCULAR: S1 and S2 present. Regular rhythm tachycardia PULMONARY: Chest is clear to auscultation, no wheezing or crackles. ABDOMEN: Soft, nontender, normoactive bowel sounds. No palpable organomegaly. Normal for trimester him a suprapubic tenderness MUSCULOSKELETAL: No joint swelling or deformity. EXTREMITIES: No cyanosis, clubbing, or pedal edema. NEUROLOGICAL: Gross neurological examination did not reveal any focal deficits. SKIN: No rashes. Past Medical History Additional Past Medical History / Comment(s): christo koehler History of Any Multi-Drug Resistant Organisms: None Reported Past Surgical History: Section Past Psychological History: No Psychological Hx Reported Smoking Status: Never smoker Past Alcohol Use History: None Reported Past Drug Use History: None Reported Medications and Allergies Home Medications Medication Instructions Recorded Confirmed Type Aspirin EC [Ecotrin Low Dose] 81 mg PO HS 02/04/23 02/04/23 History Pmi-Latv-Ofdqw Acid 1 cap PO HS 02/04/23 02/04/23 History [-U Capsule (formulary)] Allergies Allergy/AdvReac Type Severity Reaction Status Date / Time Penicillins Allergy rash/mouth Verified 02/04/23 10:52 sores Physical Exam Vitals: Vital Signs Temp Pulse Resp BP Pulse Ox 02/04/23 10:43 82 20 119/86 95 02/04/23 08:14 98.1 F 84 18 119/86 96 02/04/23 06:09 98.0 F 86 19 121/79 94 L 02/04/23 04:47 93 19 115/83 94 L 02/04/23 04:00 93 19 117/73 96 02/04/23 01:57 98.0 F 104 H 20 120/94 93 L Intake and Output 02/03/23 02/04/23 02/04/23 22:59 06:59 14:59 Other: Weight 76.657 kg Results CBC & Chem 7: 02/04/23 02:48 02/04/23 02:48 Labs: Abnormal Lab Results - Last 24 Hours (Table) 02/04/23 02/04/23 02/04/23 Range/Units 02:48 02:48 02:48 WBC 18.5 H (3.8-10.6) k/uL Neutrophils # 15.5 H (1.3-7.7) k/uL Sodium 132 L (137-145) mmol/L Carbon Dioxide 21 L (22-30) mmol/L Creatinine 0.44 L (0.52-1.04) mg/dL Glucose 111 H (74-99) mg/dL Magnesium 1.5 L (1.6-2.3) mg/dL Troponin I (0.000-0.034) ng/mL Urine Ketones 2+ H (Negative) Urine Blood Moderate H (Negative) Urine RBC 108 H (0-5) /hpf Urine Bacteria Occasional H (None) /hpf Urine Mucus Rare H (None) /hpf 02/04/23 02/04/23 Range/Units 02:48 06:07 WBC (3.8-10.6) k/uL Neutrophils # (1.3-7.7) k/uL Sodium (137-145) mmol/L Carbon Dioxide (22-30) mmol/L Creatinine (0.52-1.04) mg/dL Glucose (74-99) mg/dL Magnesium (1.6-2.3) mg/dL Troponin I 0.270 H* 0.601 H* (0.000-0.034) ng/mL Urine Ketones (Negative) Urine Blood (Negative) Urine RBC (0-5) /hpf Urine Bacteria (None) /hpf Urine Mucus (None) /hpf Assessment and Plan Assessment: Assessment and plan Elevated troponin in the setting of supraventricular tachycardia 21 weeks gestation Recent Covid 19 infection Supraventricular tachycardia Nephrolithiasis with microscopic hematuria Acute cystitis * Patient admitted under internal medicine, with FITNESS SERVICES MANAGER/cardiology/urology/infectious disease on consult * Patient started on IV Rocephin by infectious disease, urine cultures ordered * In regards to recent COVID-19 infection, workup to rule out thromboembolism. Echocardiogram ordered, venous ultrasound lower extremity ordered. Lovenox initiated for DVT prophylaxis * In regards to nephrolithiasis, ultrasound abdomen and bladder shows nonobstru cting left-sided nephrolithiasis * Continue patient on fluid resuscitation * CODE STATUS is full code Time with Patient: Greater than 30
[2023-02-04] MEDS ORDERED: ASPIRIN 81 MG PO SCH ×2 (12:15→21:00)
--- NOTE | 2023-02-04 16:04 | CA ---
Transthoracic Echo Report Name: Kelly Deluna Age: 27 Gender: F : 1995 Exam Date: 02/04/2023 11:25 Exam Location: [facility] Ht (in): 59 Wt (lb): 169 Ordering Physician: Joselito Vázquez MD Attending/Referring Phys: Seed Potato Cutter Irina Valles RDCS Procedure CPT: Indications: EVAL FOR RIGHT HEART STRAIN Cardiac Hx: Technical Quality: Good Contrast 1: Total Dose (mL): Contrast 2: Total Dose (mL): MEASUREMENTS (Male / Female) Normal Values 2D ECHO LV Diastolic Diameter PLAX 4.3 cm 4.2 - 5.9 / 3.9 - 5.3 cm LV Systolic Diameter PLAX 3.8 cm IVS Diastolic Thickness 1.0 cm 0.6 - 1.0 / 0.6 - 0.9 cm LVPW Diastolic Thickness 0.9 cm 0.6 - 1.0 / 0.6 - 0.9 cm LV Relative Wall Thickness 0.4 RV Internal Dim ED PLAX 2.8 cm LA Systolic Diameter LX 3.5 cm 3.0 - 4.0 / 2.7 - 3.8 cm LA Volume 60.7 cm??? 18 - 58 / 22 - 52 cm??? LA Volume Index 33.3 cm???/m??? 16 - 28 cm???/m??? M-MODE Aortic Root Diameter MM 2.7 cm MV E Point Septal Separation 0.3 cm AV Cusp Separation MM 1.9 cm DOPPLER AV Peak Velocity 162.2 cm/s AV Peak Gradient 10.5 mmHg MV Area PHT 3.6 cm??? Mitral E Point Velocity 84.2 cm/s Mitral A Point Velocity 56.7 cm/s Mitral E to A Ratio 1.5 MV Deceleration Time 211.1 ms MV E' Velocity 12.0 cm/s Mitral E to MV E' Ratio 7.0 TR Peak Velocity 231.1 cm/s TR Peak Gradient 21.4 mmHg Right Ventricular Systolic Press 26.0 mmHg FINDINGS Left Ventricle Left ventricular ejection fraction is estimated at 55-60 %. Left ventricular cavity size normal. Mildly increased septal wall thickness. Right Ventricle Normal right ventricular size. Right ventricular systolic pressure within normal limits. Right Atrium Normal right atrial size. Left Atrium Mildly increased left atrial volume. Mitral Valve Structurally normal mitral valve. Mild mitral regurgitation. Aortic Valve Trileaflet aortic valve. No aortic valve stenosis or regurgitation. Tricuspid Valve Structurally normal tricuspid valve. Trace to mild tricuspid regurgitation. Pulmonic Valve Structurally normal pulmonic valve. No pulmonic regurgitation. Pericardium No pericardial effusion. Aorta Normal size aortic root and proximal ascending aorta. CONCLUSIONS Normal LV systolic function Previewed by: Dr. Warner Mancilla MD (Electronically Signed) Final Date: 04 February 2023 16:03
[2023-02-04 17:54] VITALS: BP 126/92; PULSE 78; RESP 16; TEMP 97.7
[2023-02-04] MEDS ORDERED: PRENATAL VIT-IRON-FOLIC ACID 1 EACH TABLET PO SCH (21:00)
--- NOTE | 2023-02-04 21:48 | P.CONS ---
History of Present Illness - Reason for Consult Consult date: 02/04/23 - History of Present Illness Patient is a 27-year-old female with a past medical history significant for kidney stone history of UTI currently 22 weeks presented to the hospital with sudden onset of right flank pain that is rating down to her lower abdominal area patient was describing the pain to be severe intensity with some nausea she was tachycardic calling the EMS apparently she received a dose of adenosine and the patient was brought into the hospital on arrival to the ER the patient was afebrile and no fever has been recorded subsequently patient did have vital of 18.5 with a left shift creatinine was normal troponins mildly elevated remains in the normal urine has been mostly showing hematuria with occasional bacteria, patient did have some burning of urine with concern for possible UTI at this patient who is currently and allergy to penicillin infectious disease was consulted for further management of antibiotic therapy patient did mention she had just passed a small stone and some of her symptoms have decreased in intensity Past Medical History Additional Past Medical History / Comment(s): christo koehler History of Any Multi-Drug Resistant Organisms: None Reported Past Surgical History: Section Past Psychological History: No Psychological Hx Reported Smoking Status: Never smoker Past Alcohol Use History: None Reported Past Drug Use History: None Reported Medications and Allergies Home Medications Medication Instructions Recorded Confirmed Type Aspirin EC [Ecotrin Low Dose] 81 mg PO HS 02/04/23 02/04/23 History Spp-Oenu-Weozg Acid 1 cap PO HS 02/04/23 02/04/23 History [-U Capsule (formulary)] Allergies Allergy/AdvReac Type Severity Reaction Status Date / Time Penicillins Allergy rash/mouth Verified 02/04/23 10:52 sores Physical Exam Vitals: Vital Signs Temp Pulse Resp BP Pulse Ox 02/04/23 10:43 82 20 119/86 95 02/04/23 08:14 98.1 F 84 18 119/86 96 02/04/23 06:09 98.0 F 86 19 121/79 94 L 02/04/23 04:47 93 19 115/83 94 L 02/04/23 04:00 93 19 117/73 96 02/04/23 01:57 98.0 F 104 H 20 120/94 93 L Intake and Output 02/03/23 02/04/23 02/04/23 22:59 06:59 14:59 Other: Weight 76.657 kg Results CBC & Chem 7: 02/04/23 02:48 02/04/23 02:48 Labs: Abnormal Lab Results - Last 24 Hours (Table) 02/04/23 02/04/23 02/04/23 Range/Units 02:48 02:48 02:48 WBC 18.5 H (3.8-10.6) k/uL Neutrophils # 15.5 H (1.3-7.7) k/uL Sodium 132 L (137-145) mmol/L Carbon Dioxide 21 L (22-30) mmol/L Creatinine 0.44 L (0.52-1.04) mg/dL Glucose 111 H (74-99) mg/dL Magnesium 1.5 L (1.6-2.3) mg/dL Troponin I (0.000-0.034) ng/mL Urine Ketones 2+ H (Negative) Urine Blood Moderate H (Negative) Urine RBC 108 H (0-5) /hpf Urine Bacteria Occasional H (None) /hpf Urine Mucus Rare H (None) /hpf 02/04/23 02/04/23 Range/Units 02:48 06:07 WBC (3.8-10.6) k/uL Neutrophils # (1.3-7.7) k/uL Sodium (137-145) mmol/L Carbon Dioxide (22-30) mmol/L Creatinine (0.52-1.04) mg/dL Glucose (74-99) mg/dL Magnesium (1.6-2.3) mg/dL Troponin I 0.270 H* 0.601 H* (0.000-0.034) ng/mL Urine Ketones (Negative) Urine Blood (Negative) Urine RBC (0-5) /hpf Urine Bacteria (None) /hpf Urine Mucus (None) /hpf Assessment and Plan Plan: 1patient was in the hospital with acute right flank pain radiating to her lower abdominal area likely related to the kidney stone which apparently the patient did have passed patient did have a leukocytosis mild urinary symptoms with some bacteria seen on UA underlying UTI less likely but not entirely excluded 2-patient did have a penicillin allergy however subsequently mentions she has taken amoxicillin clinically doubt true penicillin allergy 3-patient is started on Rocephin 1 g daily while waiting for the culture to finalize We will follow on clinical condition and cultures to further adjust medication if needed Thank you for this consultation we will follow the patient along with you Dictation was produced using [employer] dictation software. please excuse any grammatical, word or spelling errors.
[2023-02-05] MEDS ORDERED: ENOXAPARIN 40 MG/0.4 ML SYRINGE SQ SCH (09:00)
--- NOTE | 2023-02-05 11:20 | P.DS ---
Providers Date of admission: 02/04/23 04:25 Expected date of discharge: 02/04/23 Attending physician: Ilya Nance Consults: 02/04/23 09:41 Consult Physician Stat Consulting Provider: Mari Lepe Consult Reason/Comments: medical admit elevated troponin 22 weeks . Do you want consulting provider notified?: Yes 02/04/23 09:42 Consult Physician Stat Consulting Provider: Warner Mancilla Consult Reason/Comments: elevated troponin trending up. Do you want consulting provider notified?: Yes 02/04/23 10:36 Consult Physician Routine Consulting Provider: Aime Giles Consult Reason/Comments: renal stone, hematuria, 22 weeks Do you want consulting provider notified?: Yes Consult Physician Routine Consulting Provider: Carlos Azul Consult Reason/Comments: UTI, Do you want consulting provider notified?: Yes Primary care physician: Arabella Meyer - Discharge Diagnosis(es) (1) 21 weeks gestation of Status: Acute (2) Flank pain Status: Inactive (3) H/O paroxysmal supraventricular tachycardia Status: Inactive Hospital Course: The patient is a 27-year-old 4 para 0212 presented to the emergency room by ambulance at 21 weeks of with complaints of severe pain secondary to nephrolithiasis which she has had the past. She had felt that the nephrolithiasis and the subsequent pain through into an episode of supraventricular tachycardia which she has also had in the past. She was given adenosine in the ambulance which converted her to normal sinus rhythm. She presented to the hospital and was found to have elevated troponins. The patient was apparently admitted to my service though I was given the impression she was to be admitted to internal medicine. Regardless, the patient had multiple consultations while waiting for admission to the hospital including internal m edicine, infectious disease and cardiology. While in the emergency room, she passed her kidney stone and had complete resolution of her discomfort. Cardiology directed her to have an echocardiogram which was apparently normal. EKG showed normal sinus rhythm. Cardiology felt that the patient was stable for discharge and she therefore was discharged home to follow-up in our office as scheduled within the next week with her primary tariff clerk. She additionally was to follow up with cardiology for ongoing evaluation. Discharge medications included only continue vitamins and daily baby aspirin. Procedures: #1. Echocardiogram #2. Cardiology consultation #3. Infectious disease consultation #4. Internal medicine consultation #5. EKG #6. IV pain control #7. IV hydration Patient Condition at Discharge: Good Plan - Discharge Summary New Discharge Prescriptions: No Action Qpa-Rbfb-Mpmqc Acid [-U Capsule (formulary)] 1 cap PO HS Aspirin EC [Ecotrin Low Dose] 81 mg PO HS Discharge Medication List Aspirin EC [Ecotrin Low Dose] 81 mg PO HS 02/04/23 [History] Eec-Geap-Hfflp Acid [-U Capsule (formulary)] 1 cap PO HS 02/04/23 [History] Follow up Appointment(s)/Referral(s): Arabella Meyer DO [Primary Care Provider] - 1-2 days Tasha Wang DO [Doctor of Osteopathic Medicine] - 1 Week Discharge Disposition: HOME SELF-CARE
[2023-02-05] MEDS ORDERED: ASPIRIN 81 MG PO SCH (21:00)
== END 2023-02-04 18:54 | disposition home or self-care (01) ==
LOC: EC 01:54 → 4FBP 04:25 → 3SCARD 11:48
PROVIDERS: ADMIT Obstetrics & Gynecology; ATTEND Obstetrics & Gynecology
DX: O26.832 Pregnancy related renal disease, second trimester (principal); N20.0 Calculus of kidney; O23.12 Infections of bladder in pregnancy, second trimester; N30.01 Acute cystitis with hematuria; O99.412 Diseases of the circulatory system complicating pregnancy, second trimester; I47.19 Other supraventricular tachycardia; Z86.16 Personal history of COVID-19; Z87.442 Personal history of urinary calculi; Z79.899 Other long term (current) drug therapy; Z88.0 Allergy status to penicillin; Z3A.21 21 weeks gestation of pregnancy
CPT/HCPCS: 99285; 36415; 93005; 93306; 80053; 83735; 84484; 85025; 81001; 87086; 84145; 76770; 93970; G0378 ×2; J0696

== ENCOUNTER 2023-05-16 17:15 | Outpatient (CLI) | payer BC ==
[2023-05-16 18:00] LABS: Appearance,Urine Clear (Clear); Bacteria,Urine Rare /hpf; Bilirubin,Urine Negative (Negative); Blood,Urine Trace (Negative); Color,Urine Light Yellow; Glucose,Urine (UA) Negative (Negative); Ketones,Urine 1+ (Negative); Leukocyte Esterase,Urine Trace (Negative); Mucus,Urine Few /hpf; Nitrite,Urine Negative (Negative); PH, Urine 6.5 (5.0-8.0); Protein,Urine Trace (Negative); RBC,Urine 6 /hpf (0-5); Specific Gravity,Urine 1.018 (1.001-1.035); Squamous Epithelial Cell,Urine 1 /hpf (0-4); Urobilinogen,Urine <2.0 mg/dL (<2.0); WBC,Urine 8 /hpf (0-5)
[2023-05-16 18:04] LABS: Creatinine,Urine Random 116.2 mg/dL; Protein/Creatinine Ratio,Urine 0.095
[2023-05-16 18:33] LABS: Basophils % (A) 0 %; Eosinophils # (A) 0.1 k/uL (0-0.7); Eosinophils % (A) 1 %; HCT 30.2 % (34.0-46.0); HGB 10.4 gm/dL (11.4-16.0); Lymphocytes % (A) 18 %; MCH 30.8 pg (25.0-35.0); MCHC 34.4 g/dL (31.0-37.0); MCV 89.6 fL (80.0-100.0); Mean Platelet Volume 7.7; Monocytes # (A) 0.6 k/uL (0-1.0); Monocytes % (A) 6 %; Neutrophils % (A) 73 %; Platelet Count 271 k/uL (150-450); RBC 3.37 m/uL (3.80-5.40); RDW 13.7 % (11.5-15.5)
[2023-05-16 18:46] LABS: ALT 15 U/L (4-34); AST 29 U/L (14-36); African American GFR (CKD) >90 (>60 ml/min/1.73 sqM); Blood Urea Nitrogen 6 mg/dL (7-17); LDH 187 U/L (120-246); Non-African American GFR(CKD) >90 (>60 ml/min/1.73 sqM); Uric Acid 5.6 mg/dL (3.7-7.4)
[2023-05-16 19:09] VITALS: BP 137/86; PULSE 91; RESP 18; TEMP 97.1
--- NOTE | 2023-06-28 18:15 | P.MSEPDOC ---
Presenting Problems - Arrival Data Date of Arrival on Unit: 05/16/23 Time of Arrival on Unit: 17:15 Mode of Transport: Ambulatory - Complaint OB-Reason for Admission/Chief Complaint: PIH Comment: sent over from office for PIH workup, NST, cycle blood pressures. Dr. Wang called over with orders. Medical History - Information : 4 Para: 2 : 2 Abortions: Spontaneous or Elective: 1 Number of Living Children: 2 - Gestational Age Gestational Age by MICHELE (wks/days): 36 Weeks and 0 Days Review of Systems - Review of Systems Constitutional: No problems Breast: No problems ENT: No problems Cardiovascular: No problems Respiratory: No problems Gastrointestinal: No problems Genitourinary: No problems Musculoskeletal: No problems Neurological: No problems Skin: No problems Vital Signs - Temperature Temperature: 97.1 F Temperature Source: Temporal Artery Scan - Pulse Pulse Oximetery Pulse Rate: 91 Pulse Assessment Method: Pulse Oximetry - Respirations Respiratory Rate: 18 Oxygen Delivery Method: Room Air O2 Sat by Pulse Oximetry: 97 - Blood Pressure Left Arm Blood Pressure: 137/86 Blood Pressure Mean: 103 Blood Pressure Source: Automatic Cuff Medical Screen Scoring - Assessment - Baby A Baseline FHR: 115 Heart Rate - NICHD Category: Category I (Normal) NST: Reactive Physician Notification - Physician Notified Physician Notified Date: 05/16/23 Physician Notified Time: 18:50 Physician: Tasha Wang New Order Received: Yes - Notification Comment Comment: Pt D/C home with follow up instructions. Pt to call office to try to get follow up apt for 05/21, if unable given clinic office coordinator blood pressure readings to relay to Dr. Wang. C/S for 05/22. Maternal Triage Index - Maternal Triage Index Presenting for scheduled procedure w/no complaint: No - Stat/Priority 1 Stat Priority 1: No - Urgent/Priority 2 Urgent Priority 2: No - Prompt/Priority 3 Prompt Priority 3: No - Non-Urgent/Priority 4 Non-Urgent Priority 4: Yes Criteria Met for Priority 4: sent over from office for PIH workup,NST,cycle blood pressures. Dr. Wang called over from office with orders. Disposition - Disposition OB Disposition: Discharge to home Discharge Date: 05/16/23 Discharge Time: 18:50 I agree with the RN Medical Screening Exam: Yes Case reviewed; plan agreed upon as documented in EMR&OBIX.: Yes Diagnosis: OTHER SPECIFIED COMPLICATIONS OF LABOR AND DELIVERY
== END 2023-05-16 19:00 | disposition home or self-care (01) ==
LOC: FBPOP 17:15
PROVIDERS: ATTEND Obstetrics & Gynecology
DX: O47.03 False labor before 37 completed weeks of gestation, third trimester (principal); Z3A.36 36 weeks gestation of pregnancy; Z88.0 Allergy status to penicillin; Z88.8 Allergy status to other drugs, medicaments and biological substances
CPT/HCPCS: 59025; 81001; 82565; 82570; 83615; 84156; 84450; 84460; 84520; 84550; 85025; 99213

== ENCOUNTER 2023-05-23 05:56 | Inpatient (IN) | payer BC ==
[2023-05-22 16:52] VITALS: BMI 35.3
[2023-05-23] MEDS ORDERED: OXYTOCIN 10 UNIT/ML 1 ML VIAL IM PRN (06:26)
[2023-05-23] MEDS ORDERED: METHYLERGONOVINE 0.2 MG/ML 1 ML AMP IM PRN (06:26)
[2023-05-23] MEDS ORDERED: miSOPROStoL 200 MCG TAB PO PRN (06:26)
[2023-05-23] MEDS ORDERED: CARBOPROST TROMETHAMINE 250 MCG/ML 1 ML AMP IM PRN (06:26)
[2023-05-23] MEDS ORDERED: TRANEXAMIC 1,000 MG/100ML-NACL 1,000 MG in EMPTY BAG 1 BAG IV PRN (06:26)
[2023-05-23] MEDS ORDERED: OXYTOCIN 30 UNITS/500 ML NS 30 UNIT in SALINE 1 500ML.BAG IV SCH ×2 (06:30→09:45)
[2023-05-23] MEDS: LACTATED RINGERS 1,000 ML IV SCH ×2 (06:33→10:40)
[2023-05-23 06:46] LABS: Basophils % (A) 0 %; Eosinophils # (A) 0.1 k/uL (0-0.7); Eosinophils % (A) 1 %; HCT 32.4 % (34.0-46.0); Lymphocytes # (A) 2.4 k/uL (1.0-4.8); Lymphocytes % (A) 23 %; MCH 30.3 pg (25.0-35.0); MCV 89.2 fL (80.0-100.0); Mean Platelet Volume 7.4; Monocytes # (A) 0.6 k/uL (0-1.0); Monocytes % (A) 6 %; Neutrophils # (A) 6.8 k/uL (1.3-7.7); Neutrophils % (A) 68 %; Platelet Count 295 k/uL (150-450); RBC 3.63 m/uL (3.80-5.40); RDW 13.5 % (11.5-15.5); WBC 10.1 k/uL (3.8-10.6)
[2023-05-23] MEDS: CITRIC ACID-SODIUM CITRATE 15 ML CUP PO ONE (08:00)
[2023-05-23] MEDS ORDERED: OXYTOCIN 30 UNITS/500 ML NS BAG IV ONE (08:38)
[2023-05-23] MEDS ORDERED: fentaNYL (PF) 50 MCG/ML 2 ML AMP ONE (08:38)
[2023-05-23] MEDS ORDERED: MORPHINE SULFATE (PF) 0.3 MG/0.3 ML SYR ONE (08:38)
[2023-05-23] MEDS ORDERED: NALBUPHINE 10 MG/ML (10 ML MDV) ONE (08:38)
[2023-05-23] MEDS ORDERED: ONDANSETRON 4 MG/2 ML VIAL ONE (08:38)
[2023-05-23] MEDS ORDERED: diphenhydrAMINE 25 MG CAP PO PRN (09:45)
[2023-05-23] MEDS ORDERED: diphenhydrAMINE 50 MG CAP PO PRN (09:45)
[2023-05-23] MEDS ORDERED: METOCLOPRAMIDE 5 MG/ML 2 ML VIAL IVP PRN (09:45)
[2023-05-23] MEDS ORDERED: ONDANSETRON 4 MG/2 ML VIAL IVP PRN ×2 (09:45→10:21)
[2023-05-23] MEDS ORDERED: SIMETHICONE 80 MG CHEWABLE PO PRN (09:45)
[2023-05-23] MEDS ORDERED: diphenhydrAMINE 50 MG/ML 1 ML VIAL IVP PRN ×3 (09:45→10:21)
[2023-05-23] MEDS ORDERED: ZOLPIDEM 5 MG TAB PO PRN (09:45)
[2023-05-23] MEDS ORDERED: NALOXONE 0.4 MG/ML 1 ML VIAL IV PRN ×2 (09:45→10:21)
--- NOTE | 2023-05-23 09:53 | P.HPOB ---
History of Present Illness H&P Date: 05/23/23 Chief Complaint: IUP @ 37 0/7 chronic htn, h/o pre eclampsia This is a 27-year-old -2-1-2 at 37-0/7 weeks that presents to labor and delivery for scheduled repeat section with bilateral salpingectomy. Patient has been receiving routine care with myself. Patient's care has been complicated by gestational hypertension for which she takes 100 mg of labetalol 3 times a day. Patient has had multiple workups for preeclampsia which have been negative in nature. Patient notes good movement denies vaginal bleeding or loss of fluid. On blood work this patient is a blood type of A+, rubella status immune, hepatitis B surface engine negative, HIV negative, RPR is nonreactive. Review of Systems Constitutional: Denies chills, Denies fatigue, Denies fever Ears, nose, mouth and throat: Denies headache Cardiovascular: Reports leg edema Respiratory: Denies dyspnea Gastrointestinal: Denies constipation, Denies diarrhea, Denies nausea, Denies vomiting Genitourinary: Reports Past Medical History Past Medical History: Supraventricular Tachycardia (SVT) Additional Past Medical History / Comment(s): htn 3rd trimester, wolffe parkinson white History of Any Multi-Drug Resistant Organisms: None Reported Past Surgical History: Section Additional Past Surgical History / Comment(s): c section x2 Past Anesthesia/Blood Transfusion Reactions: No Reported Reaction Past Psychological History: No Psychological Hx Reported Smoking Status: Never smoker Past Alcohol Use History: None Reported Past Drug Use History: None Reported - Past Family History Father Family Medical History: No Reported History Medications and Allergies Home Medications Medication Instructions Recorded Confirmed Type Aspirin EC [Ecotrin Low Dose] 81 mg PO HS 02/04/23 05/22/23 History Qbw-Urci-Deizl Acid 1 cap PO HS 02/04/23 05/22/23 History [-U Capsule (formulary)] Labetalol [Trandate] 100 mg PO BID@0400,2100 05/08/23 05/22/23 History Labetalol [Trandate] 150 mg PO 1200 05/22/23 05/22/23 History Allergies Allergy/AdvReac Type Severity Reaction Status Date / Time Penicillins Allergy rash/mouth Verified 05/23/23 06:26 sores Exam Osteopathic Statement: *. No significant issues noted on an osteopathic structural exam other than those noted in the History and Physical/Consult. Vital Signs Temp Pulse Resp BP Pulse Ox 05/23/23 06:25 97.8 F 76 16 153/94 98 Intake and Output 05/22/23 05/23/23 05/23/23 22:59 06:59 14:59 Other: Weight 79.379 kg 79.379 kg Targeted physical exam is performed this date is a well-nourished well- developed female in no acute distress, breathing is nonlabored, heart has a regular rate and rhythm, abdomen is gravid, cervical exam is deferred, heart tones are noted to be category 1 and she is not leann. Initial blood pressure noted to be elevated at 150s over 90s therefore we will her morning dose of labetalol was given (100 mg). Results Result Diagrams: 05/23/23 06:25 Abnormal Lab Results - Last 24 Hours (Table) 05/23/23 Range/Units 06:25 RBC 3.63 L (3.80-5.40) m/uL Hgb 11.0 L (11.4-16.0) gm/dL Hct 32.4 L (34.0-46.0) % Assessment and Plan (1) 37 weeks gestation of Current Visit: Yes Status: Acute Code(s): Z3A.37 - 37 WEEKS GESTATION OF SNOMED Code(s): 71516361 (2) Gestational [-induced] hypertension without significant proteinuria, complicating childbirth Current Visit: Yes Status: Acute Code(s): O13.4 - GESTATNL HTN WITHOUT SIGNIFICANT PROTEIN, COMP CHILDBIRTH SNOMED Code(s): 43373624 (3) H/O section Current Visit: Yes Status: Acute Code(s): Z98.891 - HISTORY OF UTERINE SCAR FROM PREVIOUS SURGERY SNOMED Code(s): 103678017 (4) Family planning Current Visit: Yes Status: Acute Code(s): Z30.09 - ENCOUNTER FOR OT GENERAL CNSL AND ADVICE ON CONTRACEPTION SNOMED Code(s): 818933459 Plan: 27-year-old 4 para 0-2-1-2 at 37-0/7 weeks that presents to labor and delivery for scheduled repeat section with bilateral salpingectomy. Patient is counseled on section and permanence of bilateral salpingectomy. Patient states she is done with childbearing and wishes tubal removal. Anesthesia is in room and patient will be taken to operating suite.
--- NOTE | 2023-05-23 10:06 | P.OP ---
Date of Procedure: 05/23/23 Preoperative Diagnosis: IUP at 37-0/7 weeks, gestational hypertension, history of x 2, family status complete Postoperative Diagnosis: Same Procedure(s) Performed: Repeat section with bilateral salpingectomy Anesthesia: spinal Surgeon: Tasha Wang Chalk Machine Operator #1: Mara Chanel Estimated Blood Loss (ml): 360 IV fluids (ml): 800 Urine output (ml): 200 Pathology: none sent Condition: stable Disposition: observation Indications for Procedure: Gestational hypertension on labetalol 100 mg 3 times a day, history of x 2 desires repeat. Operative Findings: Anterior bladder scarring appreciated. Bladder taken down sharply, yeager drained clear yellow urine throughout case. normal ovaries b/l. Description of Procedure: The patient was prepped and draped in the usual fashion after spinal anesthesia was administered by the anesthesia department. A Pfannenstiel incision was made and extended of the abdominal cavity without difficulty. The bladder peritoneum was noted to be scared anteriorly, it is elevated and dissected off sharply. A 2 cm incision was made in the transverse plane of the lower uterine segment to enter the uterus at which time clear fluid was noted. The incision was extended in both directions using the bandage scissors. The head was encountered within the field and delivered up and through the incision where the nose and mouth were thoroughly suctioned. Remainder of the infant was delivered onto the surgical field where the cord was doubly clamped, cut, and the infant was passed for resuscitative measures with weight and Apgars as noted above. The placenta was delivered manually, intact, and was grossly normal with a grossly normal three-vessel cord. The uterus was exteriorized and the interior cavity of the uterus swept of any remaining placental and membranous fragments with a laparotomy sponge. The margins of the incision were grasped with Perkins clamps and the incision closed in 2 layers. First layer was a running locking layer of 0 chromic catgut from margin to margin followed by a second layer of imbricating 0 vicryl from margin to margin. Prior occasion site is noted to be bleeding therefore 2 usgnla-fo-[id number] sutures were used to obtain hemostasis. Once hemostasis was achieved, the posterior cul-de-sac was suctioned with a guard and the uterine and ovarian findings are as noted above. The right fallopian tube was elevated and the LigaSure was used to transect the mesosalpinx to the cornual region, this was repeated on the opposite side, good hemostasis was appreciated. The uterus was replaced within the abdominal cavity and the gutters swept of any remaining blood fluid or clot. The incision was again reexamined a small amount of bleeding was appreciated therefore Surgicel powder was placed along the hysterotomy incision and prior adhesion site. Once hemostasis was achieved the parietal peritoneum was loosely reapproximated. The layer of muscles were examined and made hemostatic with the Bovie. Attention was then turned to the fascia which was closed with 2 running stitches of 0 Vicryl proceeding from the lateral margins to the midpoint. The subcutaneous tissues were irrigated, made hemostatic with the Bovie, and reapproximated with a running stitch of 30 plain catgut. The skin was reapproximated with regular surgical lorelei. Estimated blood loss for the case was approximately 360 mL. All sponge instrument and needle counts are correct. There were no complications. The patient tolerated the procedure well and proceeded to the recovery room in stable condition. was taken to special care nursery for evaluation, tachypnea.
[2023-05-23] MEDS ORDERED: NALBUPHINE 10 MG/ML (10 ML MDV) IV PRN (10:21)
[2023-05-23] MEDS: ACETAMINOPHEN IV (For NPO) 1,000 MG in EMPTY BAG 1 BAG IVPB SCH (10:50)
[2023-05-23] MEDS: ACETAMINOPHEN TAB 500 MG TAB PO SCH (13:00)
[2023-05-23] MEDS: IBUPROFEN IV 800 MG in SODIUM CHLORIDE 0.9% 250 ML IV SCH (15:55)
[2023-05-23] MEDS: IBUPROFEN 600 MG TAB PO SCH (16:00)
[2023-05-23] MEDS: SENNOSIDES-DOCUSATE SODIUM 1 EACH TAB PO SCH (22:35)
--- NOTE | 2023-05-24 07:09 | P.PN ---
Progress Note - Text Progress Note Date: 05/24/23 Postoperative day 1 status post section under spinal anesthesia, and intrathecal morphine given for postoperative analgesia, patient doing well, there is no anesthesia related complications, Patient had no headache, vital signs stable , Assessment and plan= postop day 1 status post , doing well there is no anesthesia related complication.
[2023-05-24 07:40] LABS: Basophils % (A) 0 %; Eosinophils # (A) 0.1 k/uL (0-0.7); Eosinophils % (A) 1 %; HCT 32.7 % (34.0-46.0); HGB 10.7 gm/dL (11.4-16.0); Lymphocytes # (A) 2.2 k/uL (1.0-4.8); Lymphocytes % (A) 22 %; MCH 29.3 pg (25.0-35.0); MCHC 32.7 g/dL (31.0-37.0); MCV 89.7 fL (80.0-100.0); Mean Platelet Volume 7.9; Monocytes # (A) 0.7 k/uL (0-1.0); Monocytes % (A) 7 %; Neutrophils # (A) 6.9 k/uL (1.3-7.7); Neutrophils % (A) 68 %; Platelet Count 263 k/uL (150-450); RBC 3.64 m/uL (3.80-5.40); RDW 13.8 % (11.5-15.5); WBC 10.1 k/uL (3.8-10.6)
--- NOTE | 2023-05-24 12:49 | P.PNOBGPC ---
Subjective - Subjective Principal diagnosis: Postop day 1, repeat section with bilateral salpingectomy Interval history: Patient is doing well postoperatively. She is ambulating and voiding without difficulty. She is pumping as her infant remains in the nursery on oxygen treatment. Her lochia is minimal. She states her pain is well-controlled. Patient reports: Reports appetite normal, Reports voiding normally, Reports pain well controlled, Reports ambulating normally : doing well (Special care nursery, weaning off oxygen) Objective - Vital Signs Latest vital signs: Vital Signs Temp Pulse Resp BP Pulse Ox 05/24/23 08:00 98.5 F 67 17 148/95 98 05/24/23 06:00 16 05/24/23 04:00 98.6 F 81 16 138/90 97 05/24/23 00:00 97.9 F 78 17 148/98 95 05/23/23 22:00 15 05/23/23 20:00 97.5 F L 60 16 148/95 96 05/23/23 17:00 16 05/23/23 16:00 98.7 F 97 15 122/82 97 05/23/23 15:00 16 05/23/23 13:21 16 Intake and Output 05/23/23 05/24/23 05/24/23 22:59 06:59 14:59 Intake Total 600 Output Total 700 200 200 Balance -700 400 -200 Intake: Oral 600 Output: Urine 700 200 200 Uretheral (Christopher) 200 Other: # Voids 1 1 - Exam Extremities: Present: edema Abdomen: Present: normal appearance Incision: Present: normal, dry, intact Uterus: Present: normal, firm - Labs Labs: Abnormal Lab Results - Last 24 Hours (Table) 05/24/23 Range/Units 06:40 RBC 3.64 L (3.80-5.40) m/uL Hgb 10.7 L (11.4-16.0) gm/dL Hct 32.7 L (34.0-46.0) % Assessment and Plan (1) 37 weeks gestation of Current Visit: Yes Status: Acute Code(s): Z3A.37 - 37 WEEKS GESTATION OF SNOMED Code(s): 21574828 (2) Gestational [-induced] hypertension without significant proteinur ia, complicating childbirth Current Visit: Yes Status: Acute Code(s): O13.4 - GESTATNL HTN WITHOUT SIGNIFICANT PROTEIN, COMP CHILDBIRTH SNOMED Code(s): 08019006 (3) H/O section Current Visit: Yes Status: Acute Code(s): Z98.891 - HISTORY OF UTERINE SCAR FROM PREVIOUS SURGERY SNOMED Code(s): 838642701 (4) Family planning Current Visit: Yes Status: Acute Code(s): Z30.09 - ENCOUNTER FOR OTH GENERAL CNSL AND ADVICE ON CONTRACEPTION SNOMED Code(s): 263596252 (5) Status post section Current Visit: Yes Status: Acute Code(s): Z98.891 - HISTORY OF UTERINE SCAR FROM PREVIOUS SURGERY SNOMED Code(s): 198750646 Plan: Patient is doing well postoperatively. Will continue routine postoperative care. Awaiting further recommendations from pediatrics given that baby.
[2023-05-25] MEDS: LABETALOL 100 MG TAB PO SCH (10:08)
--- NOTE | 2023-05-25 12:37 | P.PNOBGPC ---
Subjective - Subjective Principal diagnosis: Postop day 2, repeat section with bilateral salpingectomy Interval history: Patient is doing overall all well today. She is a little bit more sore than yesterday. Lochia is minimal. She is pumping as infant remains in the nursery on oxygen therapy. Patient reports: Reports appetite normal, Reports voiding normally, Reports pain well controlled, Reports ambulating normally [place]: doing well (In special care nursery) Objective - Vital Signs Latest vital signs: Vital Signs Temp Pulse Resp BP Pulse Ox 05/25/23 08:00 98.6 F 71 16 156/91 98 05/25/23 00:46 98.4 F 87 18 148/95 97 05/24/23 16:00 98.6 F 71 16 151/87 98 Intake and Output 05/24/23 05/25/23 05/25/23 22:59 06:59 14:59 Other: # Voids 2 2 2 - Exam Extremities: Present: normal, edema Abdomen: Present: normal appearance, soft Incision: Present: normal, dry, intact Uterus: Present: normal Assessment and Plan (1) 37 weeks gestation of Current Visit: Yes Status: Acute Code(s): Z3A.37 - 37 WEEKS GESTATION OF SNOMED Code(s): 65721148 (2) Gestational [-induced] hypertension without significant proteinuria, complicating childbirth Current Visit: Yes Status: Acute Code(s): O13.4 - GESTATNL HTN WITHOUT SIGNIFICANT PROTEIN, COMP CHILDBIRTH SNOMED Code(s): 06179290 (3) H/O section Current Visit: Yes Status: Acute Code(s): Z98.891 - HISTORY OF UTERINE SCAR FROM PREVIOUS SURGERY SNOMED Code(s): 004950399 (4) Family planning Current Visit: Yes Status: Acute Code(s): Z30.09 - ENCOUNTER FOR OT GENERAL CNSL AND ADVICE ON CONTRACEPTION SNOMED Code(s): 764950534 (5) Status post section Current Visit: Yes Status: Acute Code(s): Z98.891 - HISTORY OF UTERINE SCAR FROM PREVIOUS SURGERY SNOMED Code(s): 676755678 Plan: Postop day 2 status post repeat section with bilateral salpingectomy. Patient is doing well postoperatively. Encourage increased ambulation. Continue routine postoperative care
[2023-05-25] MEDS: LABETALOL 200 MG TAB PO SCH (17:45)
[2023-05-26] MEDS: NIFEdipine 10 MG CAP PO STA (00:58)
[2023-05-26] MEDS: LABETALOL 100 MG TAB PO SCH (08:54)
--- NOTE | 2023-05-26 10:08 | P.PNOBGPC ---
Subjective - Subjective Principal diagnosis: Postop day 3, repeat with bilateral salpingectomy Interval history: Patient is doing well this morning, she states she did have a "rough night". She had an elevated blood pressure and was given Procardia. Patient states she felt very "out of it", noted increased swelling, flushing. Patient states she was pumping and getting about an ounce at a time her milk "disappeared". This a.m. she states her pain is well-controlled, she is pumping. She was able to ambulate to the nursery this morning. She is tolerating a regular diet without nausea or vomiting. Patient reports: Reports appetite normal, Reports voiding normally, Reports pain well controlled, Reports ambulating normally [place]: doing well (In special care nursery on low flow oxygen) Objective - Vital Signs Latest vital signs: Vital Signs Temp Pulse Resp BP Pulse Ox 05/26/23 08:00 98.3 F 97 16 147/84 05/26/23 03:15 96 131/76 05/26/23 00:30 97.9 F 66 16 160/96 99 05/25/23 21:51 69 16 145/89 05/25/23 18:55 146/90 05/25/23 17:30 162/99 05/25/23 16:30 98.5 F 73 16 168/98 99 Intake and Output 05/25/23 05/26/23 05/26/23 22:59 06:59 14:59 Other: # Voids 1 2 1 - Exam Extremities: Present: normal, edema Abdomen: Present: normal appearance, soft Incision: Present: normal, dry, intact Uterus: Present: normal, firm Assessment and Plan (1) 37 weeks gestation of Current Visit: Yes Status: Acute Code(s): Z3A.37 - 37 WEEKS GESTATION OF SNOMED Code(s): 60619797 (2) Gestational [-induced] hypertension without significant proteinuria, complicating childbirth Current Visit: Yes Status: Acute Code(s): O13.4 - GESTATNL HTN WITHOUT SIGNIFICANT PROTEIN, COMP CHILDBIRTH SNOMED Code(s): 36799615 (3) H/O section Current Visit: Yes Status: Acute Code(s): Z98.891 - HISTORY OF UTERINE SCAR FROM PREVIOUS SURGERY SNOMED Code(s): 218204029 (4) Family planning Current Visit: Yes Status: Acute Code(s): Z30.09 - ENCOUNTER FOR OTH GENERAL CNSL AND ADVICE ON CONTRACEPTION SNOMED Code(s): 551661435 (5) Status post section Current Visit: Yes Status: Acute Code(s): Z98.891 - HISTORY OF UTERINE SCAR FROM PREVIOUS SURGERY SNOMED Code(s): 251603686 Plan: Patient is overall doing well. Plan to continue routine postoperative care and plan discharge home tomorrow.
[2023-05-27 08:44] VITALS: BP 146/95; PULSE 88; RESP 16; TEMP 97.8
--- NOTE | 2023-05-27 09:49 | P.DS ---
Providers Date of admission: 05/23/23 05:56 Expected date of discharge: 05/27/23 Attending physician: Tasha Wang Primary care physician: Stated None - Discharge Diagnosis(es) (1) 37 weeks gestation of Current Visit: Yes Status: Acute (2) Gestational [-induced] hypertension without significant proteinuria, complicating childbirth Current Visit: Yes Status: Acute (3) H/O section Current Visit: Yes Status: Acute (4) Family planning Current Visit: Yes Status: Acute (5) Status post section Current Visit: Yes Status: Acute Hospital Course: This is a 28 yo G4 [id number] that presented to labor and delivery on 05/26 for scheduled repeat section with requested salpingectomy at 37-0/7 weeks secondary to gestational hypertension. Patient had a history of 2 prior 35-week delivery secondary to preeclampsia in addition. Patient is requesting salpingectomy. Patient was admitted to labor and delivery and scheduled C- section with salpingectomy was performed. For full details on the please see the dictated operative report. Patient delivered a viable female at 901 on 05/26 weight of 6 pounds 4 ounces, Apgars of 5 8 and 9 at 1 5 and 10 minutes respectively. Patient has done well . On this postoperative day #4 she is ambulating and voiding without difficulty. She is pumping without difficulty. She states her pain is well-controlled. Her blood pressures have been moderately well-controlled 140s over 90s on 300 mg of labetalol twice daily. Patient denies signs or symptoms of preeclampsia. Patient is deemed stable for discharge home. Patient Condition at Discharge: Good Plan - Discharge Summary Discharge Rx Participant: No New Discharge Prescriptions: No Action Labetalol [Trandate] 100 mg PO BID@399,2099 [id number] Acid [-U Capsule (formulary)] 1 cap PO HS Aspirin EC [Ecotrin Low Dose] 81 mg PO HS Labetalol [Trandate] 150 mg PO 1200 Discharge Medication List Aspirin EC [Ecotrin Low Dose] 81 mg PO HS 02/04/23 [History] [id number] Acid [-U Capsule (formulary)] 1 cap PO HS 02/04/23 [History] Labetalol [Trandate] 100 mg PO BID@399,209905/08/23 [History] Labetalol [Trandate] 150 mg PO 1200 05/22/23 [History] Follow up Appointment(s)/Referral(s): Tasha Wang DO [Doctor of Osteopathic Medicine] - 1 Week Patient Instructions/Handouts: (DC), (GEN) Activity/Diet/Wound Care/Special Instructions: No intercourse, tampons or douching. No heavy lifting greater than a gallon of milk. No driving for two weeks. Call with any fever, shakes or chills, with any pain not alleviated by over the counter meds, or with any quesions or concerns. Patient is to monitor blood pressures at home, will continue labetalol 300 mg twice daily and add an additional 200 mg midday for coverage of blood pressures. Patient is to follow-up in 1 week for repeat blood pressure check in the office. Patient is to call with any concerning signs or symptoms. Preeclampsia precautions are reviewed. Discharge Disposition: HOME SELF-CARE
== END 2023-05-27 13:50 | disposition home or self-care (01) | DRG 785 ==
LOC: 4FBP 05:56
PROVIDERS: ADMIT Obstetrics & Gynecology Obstetrics; ATTEND Obstetrics & Gynecology Obstetrics
PROC: 10D00Z1 Extraction of Products of Conception, Low, Open Approach (ICD-10-PCS; principal; 2023-05-23 08:00)
PROC: 0UB70ZZ Excision of Bilateral Fallopian Tubes, Open Approach (ICD-10-PCS; principal; 2023-05-23 08:00)
DX: O13.4 Gestational [pregnancy-induced] hypertension without significant proteinuria, complicating childbirth (principal); O34.211 Maternal care for low transverse scar from previous cesarean delivery; Z30.2 Encounter for sterilization; Z88.0 Allergy status to penicillin; Z79.899 Other long term (current) drug therapy; Z79.82 Long term (current) use of aspirin; Z88.8 Allergy status to other drugs, medicaments and biological substances; Z86.79 Personal history of other diseases of the circulatory system; Z3A.37 37 weeks gestation of pregnancy; Z37.0 Single live birth
CPT/HCPCS: 85025; 86850; 86900; 86901; 88302